=== PATIENT | female | born 1980 | race African-American/Black ===

== ENCOUNTER 2019-01-08 08:29 | Emergency (ER) | payer MEDICAID ==
[~2019-01-08] VITALS: Ht 157.5 cm; Wt 66.0 kg
[2019-01-08] MEDS ORDERED: SODIUM CHLORIDE 0.9% 1,000 ML IV ONE (09:23)
[2019-01-08 09:33] LABS: CLARITY URINE CLEAR (CLEAR); COLOR URINE YELLOW (YELLOW); KETONES URINE NEGATIVE (NEGATIVE); LEUKOCYTE ESTERASE URINE NEGATIVE (NEGATIVE); NITRITE URINE NEGATIVE (NEGATIVE); OCCULT BLOOD URINE NEGATIVE (NEGATIVE); PH URINE 6.5 (4.5-8.0); PROTEIN URINE NEGATIVE (NEGATIVE); UROBILINOGEN URINE 0.2 E.U./dL (0.2-1.0)
[2019-01-08 09:41] LABS: BASOPHILS % 0.9 % (0.0-2.0); EOSINOPHILS % 5.5 % (0.0-5.0); HEMATOCRIT. 33.4 % (36.0-48.0); HEMOGLOBIN. 10.5 g/dL (12.0-16.0); LYMPHOCYTES % 24.7 % (20.0-50.0); MEAN CORPUSCULAR HEMOGLOBIN 24.5 pg (28.0-32.0); MEAN CORPUSCULAR VOLUME 78.1 fL (81.0-99.0); MEAN PLATELET VOLUME 9.1 fl (7.4-10.4); NEUTROPHILS % 63.9 % (40.0-76.0); PLATELET 203 x1000/uL (130-400); RED BLOOD CELL COUNT 4.27 mill/uL (4.2-5.4); RED CELL DISTRIBUTION WIDTH 17.4 % (11.6-14.6)
[2019-01-08 09:47] LABS: CHLORIDE 111 mEq/L (98-107)
[2019-01-08 09:48] LABS: PROTHROMBIN TIME 10.5 sec (9.6-11.0)
[2019-01-08 09:52] LABS: ETHANOL BLOOD < 10 mg/dL
[2019-01-08 09:53] LABS: HCG SCREEN NEGATIVE
[2019-01-08 13:54] VITALS: BP 116/81
[2019-01-09 09:58] LABS: *BARBITURATES SCREEN URINE NEGATIVE (NEGATIVE); *BENZODIAZEPINES SCREEN URINE NEGATIVE (NEGATIVE); *COCAINE SCREEN URINE NEGATIVE (NEGATIVE); METHADONE URINE SCREEN NEGATIVE (NEGATIVE); OPIATES URINE SCREEN NEGATIVE (NEGATIVE)
[2019-01-09 09:59] LABS: *AMPHETAMINES SCREEN URINE NEGATIVE (NEGATIVE); CANNABINOID URINE SCREEN NEGATIVE (NEGATIVE); PHENCYCLIDINE URINE SCREEN NEGATIVE (NEGATIVE)
== END 2019-01-08 18:36 | disposition home or self-care (01) ==
LOC: ER 08:52
DX: R14.0 Abdominal distension (gaseous) (principal); N92.0 Excessive and frequent menstruation with regular cycle; D50.9 Iron deficiency anemia, unspecified; E86.0 Dehydration; F12.188 Cannabis abuse with other cannabis-induced disorder; R05 Cough; E46 Unspecified protein-calorie malnutrition; Z68.26 Body mass index [BMI] 26.0-26.9, adult; K52.9 Noninfective gastroenteritis and colitis, unspecified
CPT/HCPCS: 36415; 71045; 80053; 80305; 80320; 81003; 81025; 83690; 84703; 85025; 85610; 96360; 99284; J7030; G0480